=== PATIENT | female | born 1995 | race American Indian/Alaskan Native ===

== ENCOUNTER 2016-09-28 09:37 | Emergency (ER) | payer OTHER ==
[2016-09-28 10:10] LABS: Basophils % (Auto) 0.4 % (0.0-1.8); Eosinophils % (Auto) 1.3 % (0.0-4.3); Hematocrit 39.1 % (30.3-42.9); Hemoglobin 12.6 gm/dl (10.1-14.3); Mean Corpuscular HGB Conc 32 % (30-34); Mean Corpuscular Volume 74 fl (79-97); Platelet Count 411 K/mm3 (140-440); Red Cell Distribution Width 16.9 % (13.2-15.2); White Blood Count 7.9 K/mm3 (4.5-11.0)
[2016-09-28 10:20] LABS: Mean Corpuscular Hemoglobin 24 pg (28-32)
[2016-09-28 10:24] LABS: Anion Gap 20 mmol/L; Blood Urea Nitrogen 9 mg/dL (7-17); Calcium 8.8 mg/dL (8.4-10.2); Carbon Dioxide 24 mmol/L (22-30); Chloride 97.6 mmol/L (98-107); Glucose 253 mg/dL (65-100); Potassium 5.1 mmol/L (3.6-5.0); Sodium 136 mmol/L (137-145)
[2016-09-28 10:25] LABS: Bacteria,Urine 2+ /HPF (Negative); Bilirubin,Urine NEG (Negative); Blood,Urine NEG (Negative); Ketones,Urine NEG (Negative); Leukocyte Esterase,Urine LG (Negative); Nitrite,Urine NEG (Negative); Protein,Urine <15 mg/dL mg/dL (Negative); Urobilinogen,Urine < 2.0 mg/dL (<2.0)
[2016-09-28 10:28] LABS: WBC,Urine > 182.0 /HPF (0.0-6.0)
--- NOTE | 2016-09-28 17:07 | Emergency Department Report ---
ED General Adult HPI - General Chief complaint: Hyperglycemia Stated complaint: DIABETIC Time Seen by Provider: 09/28/16 15:27 Source: patient Mode of arrival: Ambulatory Limitations: No Limitations - History of Present Illness Initial comments: Patient states that "my insulin is not working". The patient states that she has finally insurance and has a primary care doctor on [facility]. She states that she has been on regular insulin on a sliding scale prior. She has not been on any recent antibiotics but does have a history of prior UTI. She complains of urinary frequency. She feels like she may have had a fever but does not complain of chills. She does not complain of nausea or vomiting or back pain. At this time she is resting comfortably and really has no acute complaints. -: Gradual, days(s) Consistency: intermittent (intermittent urinary frequency) Worsens with: none Associated Symptoms: denies other symptoms Treatments Prior to Arrival: none - Related Data Home Medications Medication Instructions Recorded Confirmed Last Taken Ibuprofen [Motrin] 800 mg PO Q8H PRN 09/28/16 09/28/16 Unknown Insulin Aspart Protam & Aspart See Protocol SQ TID 09/28/16 09/28/16 Unknown [NovoLOG Mix 70-30 Flexpen] Insulin Glargine,Hum.rec.anlog 38 units SQ QHS 09/28/16 09/28/16 Unknown [Lantus Solostar] Previous Rx's Medication Instructions Recorded Last Taken Type HYDROcodone/APAP 5-325 [[place] 1 each PO Q6HR PRN #16 tablet 09/07/15 Unknown Rx 5/325] Cefuroxime [Ceftin] 250 mg PO Q12H #14 tablet 09/28/16 Unknown Rx Allergies Allergy/AdvReac Type Severity Reaction Status Date / Time No Known Allergies Allergy Verified 04/14/15 10:31 ED Review of Systems ROS: Stated complaint: DIABETIC Other details as noted in HPI Constitutional: denies: chills, fever Eyes: denies: eye pain, eye discharge, vision change ENT: denies: ear pain, throat pain Respiratory: denies: cough, shortness of breath, wheezing Cardiovascular: denies: chest pain, palpitations Endocrine: increased urine Gastrointestinal: denies: abdominal pain, nausea, vomiting, diarrhea Genitourinary: frequency. denies: urgency, dysuria, discharge Musculoskeletal: denies: back pain, joint swelling, arthralgia Skin: denies: rash, lesions Neurological: denies: headache, weakness, paresthesias Psychiatric: denies: anxiety, depression Hematological/Lymphatic: denies: easy bleeding, easy bruising ED Past Medical Hx - Past Medical History Previous Medical History?: Yes Hx Diabetes: Yes - Surgical History Past Surgical History?: No - Social History Smoking Status: Never Smoker Substance Use Type: None - Medications Home Medications: Home Medications Medication Instructions Recorded Confirmed Last Taken Type HYDROcodone/APAP 5-325 [[place] 1 each PO Q6HR PRN #16 tablet 09/07/15 Unknown Rx 5/325] Cefuroxime [Ceftin] 250 mg PO Q12H #14 tablet 09/28/16 Unknown Rx Ibuprofen [Motrin] 800 mg PO Q8H PRN 09/28/16 09/28/16 Unknown History Insulin Aspart Protam & Aspart See Protocol SQ TID 09/28/16 09/28/16 Unknown History [NovoLOG Mix 70-30 Flexpen] Insulin Glargine,Hum.rec.anlog 38 units SQ QHS 09/28/16 09/28/16 Unknown History [Lantus Solostar] ED Physical Exam - General Limitations: No Limitations General appearance: alert, in no apparent distress, other (nontoxic and amply hydrated) - Head Head exam: Present: atraumatic, normocephalic - Eye Eye exam: Present: normal appearance. Absent: scleral icterus - ENT ENT exam: Present: normal exam, mucous membranes moist - Neck Neck exam: Present: normal inspection - Respiratory Respiratory exam: Present: normal lung sounds bilaterally. Absent: respiratory distress - Cardiovascular Cardiovascular Exam: Present: regular rate, normal rhythm. Absent: systolic murmur, diastolic murmur, rubs, gallop - GI/Abdominal GI/Abdominal exam: Present: soft, normal bowel sounds. Absent: distended, tenderness, guarding, rebound, rigid - Extremities Exam Extremities exam: Present: normal inspection - Back Exam Back exam: Present: normal inspection - Neurological Exam Neurological exam: Present: alert, oriented X3 - Psychiatric Psychiatric exam: Present: normal affect, normal mood - Skin Skin exam: Present: warm, dry, intact, normal color. Absent: rash ED Course Vital Signs 09/28/16 09:41 Temperature 99.8 F H Pulse Rate 118 H Respiratory 16 Rate Blood Pressure 113/78 O2 Sat by Pulse 99 Oximetry - Reevaluation(s) Reevaluation #1: Given IV fluids. Urine culture sent. Ceftriaxone given. Patient is deemed appropriate for close outpatient follow-up. Patient told to follow-up on her urine culture results with her primary care provider and return criteria have been discussed. 09/28/16 17:25 ED Medical Decision Making - Lab Data Result diagrams: 09/28/16 09:52 09/28/16 09:52 Laboratory Results - last 24 hr 09/28/16 09/28/16 09/28/16 09:52 09:52 10:00 WBC 7.9 RBC 5.30 H Hgb 12.6 Hct 39.1 MCV 74 L MCH 24 L MCHC 32 RDW 16.9 H Plt Count 411 Lymph % (Auto) 20.8 [place] % (Auto) 6.1 Eos % (Auto) 1.3 Baso % (Auto) 0.4 Lymph # 1.6 Spencer # 0.5 Eos # 0.1 Baso # 0.0 Seg Neutrophils % 71.4 H Seg Neutrophils # 5.6 VBG pH Sodium 136 L Potassium 5.1 H Chloride 97.6 L Carbon Dioxide 24 Anion Gap 20 BUN 9 Creatinine 0.6 L Estimated GFR > 60 BUN/Creatinine Ratio 15.00 Glucose 253 H Calcium 8.8 Urine Color Yellow Urine Turbidity Cloudy Urine pH 7.0 Ur Specific [place] 1.022 Urine Protein <15 mg/dl Urine Glucose (UA) >=500 Urine Ketones Neg Urine Blood Neg Urine Nitrite Neg Urine Bilirubin Neg Urine Urobilinogen < 2.0 Ur Leukocyte Esterase Lg Urine WBC (Auto) > 182.0 H Urine RBC (Auto) 7.0 U Epithel Cells (Auto) 11.0 Urine Bacteria (Auto) 2+ Urine HCG, Qual Negative 09/28/16 10:00 WBC RBC Hgb Hct MCV MCH MCHC RDW Plt Count Lymph % (Auto) [place] % (Auto) Eos % (Auto) Baso % (Auto) Lymph # [place] # Eos # Baso # Seg Neutrophils % Seg Neutrophils # VBG pH 7.411 Sodium Potassium Chloride Carbon Dioxide Anion Gap BUN Creatinine Estimated GFR BUN/Creatinine Ratio Glucose Calcium Urine Color Urine Turbidity Urine pH Ur Specific [place] Urine Protein Urine Glucose (UA) Urine Ketones Urine Blood Urine Nitrite Urine Bilirubin Urine Urobilinogen Ur Leukocyte Esterase Urine WBC (Auto) Urine RBC (Auto) U Epithel Cells (Auto) Urine Bacteria (Auto) Urine HCG, Qual Critical care attestation.: If time is entered above; I have spent that time in minutes in the direct care of this critically ill patient, excluding procedure time. ED Disposition Clinical Impression: Insulin dependent diabetes mellitus Acute cystitis Qualifiers: Hematuria presence: without hematuria Qualified Code(s): N30.00 - Acute cystitis without hematuria Disposition: DISCHARGED TO HOME OR SELFCARE Is pt being admited?: No Does the pt Need Aspirin: No Condition: Stable Instructions: Diabetes Mellitus Type 2 in Adults (ED), Urinary Tract Infection in Women (ED) Additional Instructions: Continue follow sugars closely. Return fever or vomiting back pain abdominal pain or if you do not feel amply well. It is essentially follow-up with your urine culture with your primary care at provider in 2-3 days. I'll also give you the information concerning the [facility] which can provide follow-up care as well. Return to the emergency department any acute change or worsening symptoms. Rx as directed. Prescriptions: Cefuroxime [Ceftin] 250 mg PO Q12H #14 tablet Referrals: PRIMARY CARE [Primary Care Provider] - 2-3 Days [facility] [Provider Group] - 2-3 Days Time of Disposition: 17:28
[2016-09-28] MEDS ORDERED: NACL 0.9% 1000 ML 1,000 ML IV ONE (17:14)
[2016-09-28] MEDS ORDERED: ROCEPHIN/NS 1 GM/50 ML 1 GM/50 ML BAG IV ONE (17:14)
[2016-09-28 22:06] VITALS: BP 118/66
== END 2016-09-28 22:30 | disposition home or self-care (01) ==
LOC: ED 09:37
DX: N30.00 Acute cystitis without hematuria (principal); E11.65 Type 2 diabetes mellitus with hyperglycemia; Z79.4 Long term (current) use of insulin
CPT/HCPCS: 36415; 80048; 81001; 81025; 82805; 82962; 85025; 87086; 96365; 96366; 96375; 99284; J0696; J7030; J1815

== ENCOUNTER 2017-01-22 20:11 | Emergency (ER) | payer SELFPAY ==
[2017-01-22 21:08] VITALS: BP 116/71
[2017-01-23] MEDS ORDERED: ROCEPHIN IM ONE (00:10)
[2017-01-23] MEDS ORDERED: XYLOCAINE 1% MPF 5 mL INFILTRATI ONE (00:10)
[2017-01-23] MEDS ORDERED: ZITHROMAX PO ONE (00:10)
--- NOTE | 2017-01-23 00:31 | Emergency Department Report ---
ED Female HPI - General Chief complaint: Urogenital-Female Stated complaint: SORES ON VAGINA Time Seen by Provider: 01/23/17 00:03 Source: patient Mode of arrival: Ambulatory Limitations: No Limitations - History of Present Illness Initial comments: pt is a 21 y/o aaf who presents vaginal uclers x 1 week , symptoms include pain irritation and white thick vaginal discharge. last contact 3 weeks ago, LMP 2 weeks ago , pt denies abdominal pain no n/v no fever or chills MD Complaint: vaginal discharge, possible STD, other (vaginal ulcers ) Onset/Timin -: week(s) Location: labia, perineum Radiation: non-radiating Severity: moderate Severity scale (0 -10): 4 Quality: burning, aching Consistency: constant Improves with: none Worsens with: other (palpation ) Are you Now?: No Last Menstrual Period: 01/07/17 EDC: 10/14/17 Associated Symptoms: vaginal discharge, rash (vaginal ). denies: vaginal bleeding, abdominal pain, nausea/vomiting, fever/chills, headaches, loss of appetite, dysuria, hematuria, seizure, shortness of breath, syncope, weakness - Related Data Sexually active: Yes : 2 Para: 1 (1 misscarriage ) A: 0 Home Medications Medication Instructions Recorded Confirmed Last Taken Ibuprofen [Motrin] 800 mg PO Q8H PRN 09/28/16 09/28/16 Unknown Insulin Aspart Protam & Aspart See Protocol SQ TID 09/28/16 09/28/16 Unknown [NovoLOG Mix 70-30 Flexpen] Insulin Glargine,Hum.rec.anlog 38 units SQ QHS 09/28/16 09/28/16 Unknown [Lantus Solostar] Previous Rx's Medication Instructions Recorded Last Taken Type HYDROcodone/APAP 5-325 [[place] 1 each PO Q6HR PRN #16 tablet 09/07/15 Unknown Rx 5/325] Cefuroxime [Ceftin] 250 mg PO Q12H #14 tablet 09/28/16 Unknown Rx Acyclovir [Zovirax Tab] 400 mg PO 5XD #50 tablet 01/23/17 Unknown Rx metroNIDAZOLE [Flagyl] 500 mg PO Q12HR #14 tab 01/23/17 Unknown Rx Allergies Allergy/AdvReac Type Severity Reaction Status Date / Time No Known Allergies Allergy Verified 04/14/15 10:31 ED Review of Systems ROS: Stated complaint: SORES ON VAGINA Other details as noted in HPI Constitutional: denies: chills, fever Eyes: denies: eye pain, eye discharge, vision change ENT: denies: ear pain, throat pain Respiratory: denies: cough, shortness of breath, wheezing Cardiovascular: denies: chest pain, palpitations Endocrine: no symptoms reported Gastrointestinal: denies: abdominal pain, nausea, diarrhea Genitourinary: discharge (white thick ), other (vaginal uclers ) Musculoskeletal: denies: back pain, joint swelling, arthralgia Skin: denies: rash, lesions Neurological: denies: headache, weakness, paresthesias Psychiatric: denies: anxiety, depression Hematological/Lymphatic: denies: easy bleeding, easy bruising ED Past Medical Hx - Past Medical History Previous Medical History?: Yes Hx Diabetes: Yes - Surgical History Past Surgical History?: No - Social History Smoking Status: Never Smoker Substance Use Type: None - Medications Home Medications: Home Medications Medication Instructions Recorded Confirmed Last Taken Type HYDROcodone/APAP 5-325 [[place] 1 each PO Q6HR PRN #16 tablet 09/07/15 09/28/16 Unknown Rx 5/325] Cefuroxime [Ceftin] 250 mg PO Q12H #14 tablet 09/28/16 Unknown Rx Ibuprofen [Motrin] 800 mg PO Q8H PRN 09/28/16 09/28/16 Unknown History Insulin Aspart Protam & Aspart See Protocol SQ TID 09/28/16 09/28/16 Unknown History [NovoLOG Mix 70-30 Flexpen] Insulin Glargine,Hum.rec.anlog 38 units SQ QHS 09/28/16 09/28/16 Unknown History [Lantus Solostar] Acyclovir [Zovirax Tab] 400 mg PO 5XD #50 tablet 01/23/17 Unknown Rx metroNIDAZOLE [Flagyl] 500 mg PO Q12HR #14 tab 01/23/17 Unknown Rx ED Physical Exam - General Limitations: No Limitations General appearance: alert, in no apparent distress - Head Head exam: Present: atraumatic, normocephalic - Eye Eye exam: Present: normal appearance - ENT ENT exam: Present: mucous membranes moist - Neck Neck exam: Present: normal inspection - Respiratory Respiratory exam: Present: normal lung sounds bilaterally. Absent: respiratory distress - Cardiovascular Cardiovascular Exam: Present: regular rate, normal rhythm. Absent: systolic murmur, diastolic murmur, rubs, gallop - GI/Abdominal GI/Abdominal exam: Present: soft, normal bowel sounds - Rectal Rectal exam: Present: deferred - External exam: Present: lesions (vulvovaginal lesion yellow center round painful to touch clear yellow discharge ) Speculum exam: Present: erythema, vaginal discharge (white thick malodorous ). Absent: cervical discharge, vaginal bleeding, foreign body, tissue, laceration Bi-manual exam: Present: normal bi-manual exam. Absent: cervical motion tendernes, adnexal tenderness, adnexal mass, uterine enlargement, uterine tenderness - Extremities Exam Extremities exam: Present: normal inspection, full ROM, normal capillary refill. Absent: tenderness, pedal edema, joint swelling, calf tenderness - Back Exam Back exam: Present: normal inspection, full ROM. Absent: tenderness, CVA tenderness (R), CVA tenderness (L), rash noted - Neurological Exam Neurological exam: Present: alert, oriented X3, CN II-XII intact, normal gait, reflexes normal - Psychiatric Psychiatric exam: Present: normal affect, normal mood - Skin Skin exam: Present: warm, dry, intact, normal color. Absent: rash ED Course Vital Signs 01/22/17 20:58 Temperature 97.9 F Pulse Rate 91 H Respiratory 18 Rate Blood Pressure 116/71 Blood Pressure 116/71 [Left] O2 Sat by Pulse 99 Oximetry ED Medical Decision Making - Lab Data Laboratory Tests 01/23/17 01:00 Urine Color Yellow Urine Turbidity Clear Urine pH 6.0 Ur Specific [place] 1.026 Urine Protein <15 mg/dl Urine Glucose (UA) >=500 Urine Ketones Neg Urine Blood Neg Urine Nitrite Neg Urine Bilirubin Neg Urine Urobilinogen < 2.0 Ur Leukocyte Esterase Tr Urine WBC (Auto) 13.0 H Urine RBC (Auto) 1.0 U Epithel Cells (Auto) 5.0 Urine HCG, Qual Negative - Medical Decision Making pt is a 21 y/o aaf who presents vaginal uclers x 1 week , symptoms include pain irritation and white thick vaginal discharge. last contact 3 weeks ago, LMP 2 weeks ago , pt denies abdominal pain no n/v no fever or chills vulvovaginal lesion yellow center round painful to touch clear yellow discharge ua: negative HCG: negative will tx for std, genital herpes, pt will follow up with health department for hiv screening pt verbalized agreement and understanding with same. Critical care attestation.: If time is entered above; I have spent that time in minutes in the direct care of this critically ill patient, excluding procedure time. ED Disposition Clinical Impression: Exposure to STD Genital herpes Qualifiers: Herpes simplex infection site: vulvovaginitis Qualified Code(s): A60.04 - Herpesviral vulvovaginitis Disposition: DC- TO HOME OR SELFCARE Is pt being admited?: No Does the pt Need Aspirin: No Condition: Good Instructions: Genital Herpes Simplex (ED) Prescriptions: Acyclovir [Zovirax Tab] 400 mg PO 5XD #50 tablet metroNIDAZOLE [Flagyl] 500 mg PO Q12HR #14 tab Referrals: PRIMARY CARE, [Primary Care Provider] - 3-5 Days Forms: Work/School Release Form(ED) Time of Disposition: 02:01
[2017-01-23 01:38] LABS: Bilirubin,Urine NEG (Negative); Blood,Urine NEG (Negative); Ketones,Urine NEG (Negative); Leukocyte Esterase,Urine TR (Negative); Nitrite,Urine NEG (Negative); Protein,Urine <15 mg/dL mg/dL (Negative); Urobilinogen,Urine < 2.0 mg/dL (<2.0)
== END 2017-01-23 02:08 | disposition home or self-care (01) ==
LOC: ED 20:11
DX: A60.04 Herpesviral vulvovaginitis (principal); E11.9 Type 2 diabetes mellitus without complications; Z20.2 Contact with and (suspected) exposure to infections with a predominantly sexual mode of transmission; Z79.4 Long term (current) use of insulin
CPT/HCPCS: 81001; 81025; 87210; 87591; 96372; 99284; J0696

== ENCOUNTER 2018-12-03 17:53 | Emergency (ER) | payer SELFPAY ==
[2018-12-03 18:55] VITALS: BP 119/74
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
[2018-12-03] MEDS ORDERED: BOOSTRIX IM ONE (19:39)
[2018-12-03] MEDS ORDERED: TYLENOL PO ONE (19:40)
[2018-12-03] MEDS ORDERED: IBUPROFEN PO ONE (19:40)
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
[2018-12-03] MEDS ORDERED: THERMAZENE 50 GRAM TP ONE (20:00)
== END 2018-12-03 20:25 | disposition home or self-care (01) ==
LOC: ED 17:53
DX: L03.317 Cellulitis of buttock (principal); T21.25XA Burn of second degree of buttock, initial encounter; E11.9 Type 2 diabetes mellitus without complications; Z79.4 Long term (current) use of insulin; Z79.1 Long term (current) use of non-steroidal anti-inflammatories (NSAID); Z79.899 Other long term (current) drug therapy; X19.XXXA Contact with other heat and hot substances, initial encounter; Y93.89 Activity, other specified; Y92.098 Other place in other non-institutional residence as the place of occurrence of the external cause; Y99.8 Other external cause status
CPT/HCPCS: 90471; 90715

== ENCOUNTER 2019-01-25 20:10 | Emergency (ER) | payer BC, OTHER ==
--- NOTE | 2019-01-25 21:24 | Event Note ---
ED Screening Note Date of service: 01/25/19 Time: 21:22 ED Screening Note: 23 y o female pmh of DM controlled with insulin presents with blurred vision bilat [id number]:146 This initial assessment/diagnostic orders/clinical plan/treatment(s) is/are subject to change based on patients health status, clinical progression and re- assessment by fellow clinical providers in the ED. Further treatment and workup at subsequent clinical providers discretion. Patient/guardian urged not to elope from the ED as their condition may be serious if not clinically assessed and managed. Initial orders include: labs acc eval
[2019-01-25] MEDS ORDERED: SODIUM CHLORIDE 0.9% 1000 ML 1,000 ML IV ONE ×2 (21:26→23:26)
[2019-01-25 21:58] LABS: Basophils # (Auto) 0.1 K/mm3 (0.0-0.1); Basophils % (Auto) 0.9 % (0.0-1.8); Eosinophils % (Auto) 0.6 % (0.0-4.3); Hematocrit 38.5 % (30.3-42.9); Hemoglobin 12.4 gm/dl (10.1-14.3); Lymphocytes # (Auto) 2.2 K/mm3 (1.2-5.4); Lymphocytes % (Auto) 35.4 % (13.4-35.0); Mean Corpuscular HGB Conc 32 % (30-34); Mean Corpuscular Volume 74 fl (79-97); Monocytes # (Auto) 0.5 K/mm3 (0.0-0.8); Monocytes % (Auto) 7.3 % (0.0-7.3); Platelet Count 319 K/mm3 (140-440); Red Blood Count 5.21 M/mm3 (3.65-5.03); Red Cell Distribution Width 15.7 % (13.2-15.2)
[2019-01-25 22:05] LABS: Alanine Aminotransferase 14 units/L (7-56); BUN/Creatinine Ratio 14; Blood Urea Nitrogen 7 mg/dL (7-17); Calcium 8.4 mg/dL (8.4-10.2); Hemolysis Index 78
[2019-01-26 00:30] LABS: Bacteria,Urine 2+ /HPF (Negative); Bilirubin,Urine NEG (Negative); Blood,Urine SM (Negative); Color,Urine Yellow (Yellow); HCG Qualitative,Urine Negative (Negative); Mucus,Urine 1+ /HPF; Protein,Urine <15 mg/dL mg/dL (Negative); Urobilinogen,Urine < 2.0 mg/dL (<2.0)
[2019-01-26] MEDS ORDERED: cefTRIAXone/NS 1 GM/50 ML 1 GM/50 ML BAG IV ONE (00:33)
--- NOTE | 2019-01-26 03:49 | Emergency Department Report ---
<IDALIAMANNYCorniRONNI - Last Filed: 01/26/19 03:44> ED General Adult HPI - General Chief complaint: Hyperglycemia Stated complaint: DIABETIC/BURRED VISION Time Seen by Provider: 01/25/19 21:22 Source: patient Mode of arrival: Ambulatory Limitations: No Limitations - History of Present Illness Initial comments: Patient is a 23-year-old -[place] female with a history of insulin- dependent diabetes who presents to the ED with persistently elevated blood glucose level despite using her recently changed insulin regiment by her primary care physician, for the last 2 days. Patient states that her blood glucose level Was fluctuating and she has to continue eating persistently at night to maintain higher than normal blood glucose level. Patient states that she has also been feeling lightheaded, dizziness with blurry vision, symptoms that she usually experiences whenever her blood glucose level is high. Patient denies chest pain, fever, chills, nausea, vomiting, dizziness, syncope, palpitations, vaginal bleeding, dysuria, urinary frequency and urgency or headache. MD Complaint: Lightheadedness; Dizziness, dehydration; hyperglycemia; blurry vision -: Gradual, days(s) (2) Location: head Radiation: non-radiation Severity scale (0 -10): 0 Quality: dull Consistency: intermittent Improves with: none Worsens with: none Associated Symptoms: denies other symptoms, malaise. denies: confusion, chest pain, cough, diaphoresis, fever/chills, headaches, loss of appetite, nausea /vomiting, seizure, shortness of breath, syncope, weakness Treatments Prior to Arrival: none - Related Data Home Medications Medication Instructions Recorded Confirmed Last Taken Ibuprofen [Motrin] 800 mg PO Q8H PRN 09/28/16 09/28/16 Unknown Insulin Aspart Protam & Aspart See Protocol SQ TID 09/28/16 09/28/16 Unknown [NovoLOG Mix 70-30 Flexpen] Insulin Glargine,Hum.rec.anlog 38 units SQ QHS 09/28/16 09/28/16 Unknown [Lantus Solostar] Previous Rx's Medication Instructions Recorded Last Taken Type HYDROcodone/APAP 5-325 [[facility] [place] 1 each PO Q6HR PRN #16 tablet 09/07/15 Unknown Rx 5/325] cefUROXime [Ceftin] 250 mg PO Q12H #14 tablet 09/28/16 Unknown Rx Acyclovir [Zovirax Tab] 400 mg PO 5XD #50 tablet 01/23/17 Unknown Rx metroNIDAZOLE [Flagyl] 500 mg PO Q12HR #14 tab 01/23/17 Unknown Rx Acetaminophen/Codeine [Tylenol 1 tab PO Q6H PRN #12 tab 12/03/18 Unknown Rx /Codeine # 3 tab] Fluconazole [Diflucan TAB] 150 mg PO ONCE #1 tablet 12/03/18 Unknown Rx Ibuprofen [Motrin] 600 mg PO Q8H PRN #20 tablet 12/03/18 Unknown Rx Silver Sulfadiazine [Silvadene] 25 gm TP Q12H #1 cream..g. 12/03/18 Unknown Rx cephALEXin [Keflex] 500 mg PO Q8HR #30 cap 12/03/18 Unknown Rx metroNIDAZOLE [Flagyl] 500 mg PO Q12HR #14 tab 12/03/18 Unknown Rx cephALEXin [Keflex] 500 mg PO Q8HR #30 cap 01/26/19 Unknown Rx Allergies Allergy/AdvReac Type Severity Reaction Status Date / Time No Known Allergies Allergy Verified 12/03/18 18:36 ED Review of Systems Comment: All other systems reviewed and negative Constitutional: denies: chills, fever Eyes: other (Blurry vision). denies: eye pain, eye discharge, vision change ENT: denies: ear pain, throat pain Respiratory: denies: cough, shortness of breath, wheezing Cardiovascular: denies: chest pain, palpitations Endocrine: no symptoms reported Gastrointestinal: denies: abdominal pain, nausea, vomiting, diarrhea Genitourinary: denies: urgency, dysuria, discharge Musculoskeletal: denies: back pain, joint swelling, arthralgia Skin: denies: rash, lesions, change in color, change in hair/nails Neurological: other (Lightheadedness). denies: headache, weakness, paresthesi as, confusion, abnormal gait, vertigo Psychiatric: denies: anxiety, depression, auditory hallucinations Hematological/Lymphatic: denies: easy bleeding, easy bruising ED Past Medical Hx - Past Medical History Previous Medical History?: Yes Hx Diabetes: Yes - Surgical History Past Surgical History?: No - Social History Smoking Status: Never Smoker Substance Use Type: None - Medications Home Medications: Home Medications Medication Instructions Recorded Confirmed Last Taken Type HYDROcodone/APAP 5-325 [[facility] 1 each PO Q6HR PRN #16 tablet 09/07/15 09/28/16 Unknown Rx 5/325] Ibuprofen [Motrin] 800 mg PO Q8H PRN 09/28/16 09/28/16 Unknown History Insulin Aspart Protam & Aspart See Protocol SQ TID 09/28/16 09/28/16 Unknown History [NovoLOG Mix 70-30 Flexpen] Insulin Glargine,Hum.rec.anlog 38 units SQ QHS 09/28/16 09/28/16 Unknown History [Lantus Solostar] cefUROXime [Ceftin] 250 mg PO Q12H #14 tablet 09/28/16 Unknown Rx Acyclovir [Zovirax Tab] 400 mg PO 5XD #50 tablet 01/23/17 Unknown Rx metroNIDAZOLE [Flagyl] 500 mg PO Q12HR #14 tab 01/23/17 Unknown Rx Acetaminophen/Codeine [Tylenol 1 tab PO Q6H PRN #12 tab 12/03/18 Unknown Rx /Codeine # 3 tab] Fluconazole [Diflucan TAB] 150 mg PO ONCE #1 tablet 12/03/18 Unknown Rx Ibuprofen [Motrin] 600 mg PO Q8H PRN #20 tablet 12/03/18 Unknown Rx Silver Sulfadiazine [Silvadene] 25 gm TP Q12H #1 cream..g. 12/03/18 Unknown Rx cephALEXin [Keflex] 500 mg PO Q8HR #30 cap 12/03/18 Unknown Rx metroNIDAZOLE [Flagyl] 500 mg PO Q12HR #14 tab 12/03/18 Unknown Rx cephALEXin [Keflex] 500 mg PO Q8HR #30 cap 01/26/19 Unknown Rx ED Physical Exam - General Limitations: No Limitations General appearance: alert, in no apparent distress - Head Head exam: Present: atraumatic, normocephalic, normal inspection - Eye Eye exam: Present: normal appearance, PERRL, EOMI Pupils: Present: normal accommodation - ENT ENT exam: Present: normal exam, normal orophraynx, mucous membranes moist, TM's normal bilaterally, normal external ear exam - Neck Neck exam: Present: normal inspection, full ROM - Respiratory Respiratory exam: Present: normal lung sounds bilaterally. Absent: respiratory distress, wheezes, rales, rhonchi, chest wall tenderness, accessory muscle use, decreased breath sounds, prolonged expiratory - Cardiovascular Cardiovascular Exam: Present: regular rate, normal rhythm, normal heart sounds. Absent: systolic murmur, diastolic murmur, rubs, gallop - GI/Abdominal GI/Abdominal exam: Present: soft, normal bowel sounds. Absent: tenderness, guarding, rebound, hyperactive bowel sounds, hypoactive bowel sounds, organomegaly - Rectal Rectal exam: Present: deferred - Extremities Exam Extremities exam: Present: normal inspection, full ROM, normal capillary refill - Back Exam Back exam: Present: normal inspection, full ROM. Absent: tenderness, CVA tenderness (L), muscle spasm - Neurological Exam Neurological exam: Present: alert, oriented X3, CN II-XII intact, normal gait, reflexes normal - Psychiatric Psychiatric exam: Present: normal affect, normal mood - Skin Skin exam: Present: warm, dry, intact, normal color. Absent: rash ED Course - Reevaluation(s) Reevaluation #1: 01/26/19 03:49 This is a 23-year-old female with a history of insulin-dependent diabetes who presented to the ED with persistent fluctuations of hyperglycemia and hypoglycemia episodes after her medications were changed to different insulin regiment by her primary care physician. In the ED, patient states that prior to arrival her blood sugar was over 200 mg/dL but upon arrival it was 146 mg/dL. Lab test results were reviewed and are significant for hyperglycemia of 144-146 mg/dL. other lab test results are unremarkable except for urinalysis that shows significant urinary tract infection. On reevaluation, patient's blood sugar dropped to 40 mg/dL after getting 1 L normal saline IV fluids. Patient was given a meal tray in the ED and observed, was monitoring her blood sugar. Patient will be discharged home once the blood glucose stabilizes normal level. ED Medical Decision Making - Lab Data Result diagrams: 01/25/19 21:32 01/25/19 21:32 - Medical Decision Making This is a 23-year-old female with a history of insulin-dependent diabetes who presented to the ED with persistent fluctuations of hyperglycemia and hypoglycemia episodes after her medications were changed to different insulin regiment by her primary care physician. In the ED, patient states that prior to arrival her blood sugar was over 200 mg/dL but upon arrival it was 146 mg/dL. Lab test results were reviewed and are significant for hyperglycemia of 144-146 mg/dL. other lab test results are unremarkable except for urinalysis that shows significant urinary tract infection. On reevaluation, patient's blood sugar dropped to 40 mg/dL after getting 1 L normal saline IV fluids. Patient was given a meal tray in the ED and observed, was monitoring her blood sugar. Patient will be discharged home once the blood glucose stabilizes normal level. When the blood glucose was rechecked, after initial meal tray was half-way consumed, the patient blood glucose was 65 mg/dL. Patient was encouraged to continue drinking the orange juice as well as eat the sandwich meal provided and her blood glucose shall be rechecked and the patient discharged home upon normalization of the patient's blood glucose level. - Differential Diagnosis Hyperglycemia; Dizziness; Acute UTI ED Disposition Clinical Impression: Acute urinary tract infection, Hyperglycemia due to type 1 diabetes mellitus, Vaginal bleeding Disposition: -01 TO HOME OR SELFCARE Is pt being admited?: No Does the pt Need Aspirin: No Condition: Stable Instructions: Urinary Tract Infection in Women (ED), Diabetes Mellitus Type 1 in Adults (ED), Diabetes Mellitus Type 2 in Adults (ED) Additional Instructions: Take medication with food, drink plenty of fluids and follow-up with your primary care physician in 5-7 days for reevaluation. Return to the ED immediately if symptoms get worse. Prescriptions: cephALEXin [Keflex] 500 mg PO Q8HR #30 cap Referrals: PRIMARY CARE, [Primary Care Provider] - 3-5 Days Forms: Work/School Release Form(ED) Time of Disposition: 03:58 Print Language: CITIZEN OF [place] <JIMMYSAMANTHA - Last Filed: 01/26/19 04:16> ED Review of Systems ROS: Stated complaint: DIABETIC/BURRED VISION Other details as noted in HPI ED Course Vital Signs 01/25/19 01/25/19 01/25/19 21:22 22:51 23:00 Temperature 98.7 F Pulse Rate 87 83 Respiratory 18 16 15 Rate Blood Pressure 102/71 104/70 Blood Pressure 113/76 [Left] O2 Sat by Pulse 98 100 99 Oximetry 01/26/19 01/26/19 02:01 03:00 Temperature Pulse Rate 88 90 Respiratory 16 19 Rate Blood Pressure 104/70 114/63 Blood Pressure [Left] O2 Sat by Pulse 98 99 Oximetry ED Medical Decision Making - Lab Data Result diagrams: 01/25/19 21:32 01/25/19 21:32 - Medical Decision Making After eating full meal, Repeat blood sugar 147. Marline is discharged home. Critical care attestation.: If time is entered above; I have spent that time in minutes in the direct care of this critically ill patient, excluding procedure time. ED Disposition Is pt being admited?: No Does the pt Need Aspirin: No
[2019-01-26 04:27] VITALS: BP 107/62
== END 2019-01-26 04:25 | disposition home or self-care (01) ==
LOC: ED 20:10
DX: E10.65 Type 1 diabetes mellitus with hyperglycemia (principal); N39.0 Urinary tract infection, site not specified; R42 Dizziness and giddiness; Z79.1 Long term (current) use of non-steroidal anti-inflammatories (NSAID); Z79.899 Other long term (current) drug therapy; Z79.4 Long term (current) use of insulin
CPT/HCPCS: 36415; 80053; 81001; 81025; 82947; 82962; 85025; 87086; 96361; 96365; 99284; J0696; J7030